=== PATIENT | male | born 2005 | race Two or more races ===

== ENCOUNTER 2025-02-04 16:39 | Emergency (ER) | payer OTHER ==
[~2025-02-04] VITALS: Ht 185.4 cm; Wt 115.0 kg
[2025-02-04 17:11] VITALS: O2SAT 99
[2025-02-04] MEDS ORDERED: CEPH500C2 MT (19:22)
[2025-02-04] MEDS ORDERED: SULF1TAB48 MT (19:22)
[2025-02-04] MEDS: CEPHALEXIN 250MG CAPSULE PO ONE (19:46)
[2025-02-04] MEDS: SULFAMETHOXAZOLE/TRIMETHOPRIM 800/160MG TABLET PO ONE (19:46)
[2025-02-04 20:24] VITALS: BP 157/72; PULSE 78; RESP 14; TEMP 36.7; O2SAT 98
== END 2025-02-04 20:25 | disposition home or self-care (01) ==
LOC: ER 16:39
DX: L03.115 Cellulitis of right lower limb (principal); Z79.899 Other long term (current) drug therapy
CPT/HCPCS: 73620; 99283